=== PATIENT | female | born 1965 | race Caucasian/White ===

== ENCOUNTER 2019-03-28 19:06 | Emergency (ER) | payer BC ==
[~2019-03-28] VITALS: Ht 154.9 cm; Wt 63.5 kg
--- NOTE | 2019-03-28 19:15 | NUR ---
PT [facility] C/O DIZZINESS X 30 MIN AGO. PATIENT STATES SHE FEELS SHAKEY, STATES HAS HX OF ANXIETY. PT AOX4. NAD NOTED. RESP EVEN AND UNLABORED. PT ON MONITOR IN BED 1 WITH FAMILY AT BEDSIDE. WILL CONTINUE TO MONITOR.
--- NOTE | 2019-03-28 19:30 | NUR ---
BLOOD DRAWN AND GIVEN TO LAB
[2019-03-28 19:36] LABS: BASOPHILS # (AUTO) 0.1 /CMM (0.0-0.2); BASOPHILS % (AUTO) 0.9 % (0.0-2.0); EOSINOPHILS % (AUTO) 5.4 % (0.0-6.0); HEMATOCRIT 41 % (33-45); HEMOGLOBIN 13.7 g/dL (11.5-14.8); LYMPHOCYTES # (AUTO) 4.9 /CMM (0.8-4.8); LYMPHOCYTES % (AUTO) 47.2 % (20.0-44.0); MEAN CORPUSCULAR HGB CONC 34 g/dl (31.0-36.0); MEAN CORPUSCULAR VOLUME 89 fL (82-100); MONOCYTES # (AUTO) 0.7 /CMM (0.1-1.30); MONOCYTES % (AUTO) 6.9 % (2.0-12.0); NEUTROPHILS # (AUTO) 4.1 /CMM (1.8-8.9); NEUTROPHILS % (AUTO) 39.6 % (43.0-81.0); PLATELET COUNT (AUTO) 338 /CMM (150-450); RED BLOOD CELL COUNT(AUTO) 4.56 MIL/uL (4.0-5.2); WHITE BLOOD COUNT (AUTO) 10.4 K/uL (4.3-11.0)
[2019-03-28] MEDS: IV NS 0.9% 1,000 ML BAG IV ONE ×2 (19:39→21:34)
[2019-03-28] MEDS ORDERED: LORAZEPAM INJ 2 MG/ML VIAL ONE (19:40)
[2019-03-28] MEDS: LORAZEPAM INJ 2 MG/ML VIAL IV ONE (19:44)
[2019-03-28 19:48] LABS: CALCIUM, SERUM 8.8 mg/dL (8.5-10.1); CARBON DIOXIDE 26 mmol/L (21-32); CHLORIDE 103 mmol/L (98-107); CREATININE 0.7 mg/dL (0.6-1.3); GLUCOSE 126 mg/dL (74-106); POTASSIUM 3.1 mmol/L (3.5-5.1); SODIUM SERUM 140 mmol/L (136-145); UREA NITROGEN, BLOOD 14 mg/dL (7-18)
--- NOTE | 2019-03-28 20:30 | NUR ---
RADIOLOGY AT BEDSIDE FOR XRAY
[2019-03-28] MEDS ORDERED: POTASSIUM CHLORIDE 20 MEQ TAB.PRT.SR PO ONE (20:33)
[2019-03-28] MEDS: POTASSIUM CHLORIDE 20 MEQ TAB.PRT.SR PO ONE (20:47)
[2019-03-28] MEDS: MAGNESIUM OXIDE 400 MG TABLET PO ONE (20:47)
[2019-03-28] MEDS: MAGNESIUM OXIDE 400 MG TABLET ONE (20:48)
--- NOTE | 2019-03-28 20:48 | NUR ---
MAGNESIUM OXIDE 800MG PO TABLET RECEIVED FROM [facility]PART[facility]. UNAVAILVE IN ED OMNICELL.
[2019-03-28 21:01] LABS: APPEARANCE,URINE Clear (CLEAR); BILIRUBIN,URINE Negative (NEGATIVE); BLOOD, URINE Trace-intact Ery/uL (NEGATIVE); COLOR,URINE Yellow (YELLOW); KETONES,URINE Negative (NEGATIVE); LEUKOCYTE ESTERASE ,URINE Small (NEGATIVE); NITRITE, URINE Negative (NEGATIVE); PH,URINE 5.5 (5.0-8.0); PROTEIN,URINE Negative (NEGATIVE); UGLUCOSE Negative (NEGATIVE); UROBILINOGEN,URINE 0.2 EU/dL (0.2)
[2019-03-28 21:12] LABS: BACTERIA,URINE Few /HPF (None Seen); SQUAMOUS EPITHELIAL CELL,UR Few /HPF (None Seen)
[2019-03-28 22:15] VITALS: BP 119/75
[2019-03-28] MEDS ORDERED: CT SWABBABLE VALVE TRANS SET 1 EA INFUS.SET MC ONE (22:15)
[2019-03-28] MEDS ORDERED: IOHEXOL-350 100 ML VIAL IV ONE (22:15)
[2019-03-28] MEDS ORDERED: IV NS 0.9% 250 ML IV ONE (22:15)
--- NOTE | 2019-03-28 22:15 | NUR ---
PT TAKEN TO RADIOLOGY VIA [facility]
--- NOTE | 2019-03-28 22:40 | NUR ---
PT RETURNED FROM CT. TOLERATED WELL.
--- NOTE | 2019-03-28 23:27 | NUR ---
IV removed. Catheter intact and site benign. Pressure and 4x4 applied to site. No bleeding noted.Patient discharged to home in stable condition. Written and verbal after care instructions given. Patient verbalizes understanding of instruction. PT AMBULATORY WITH STEADY GAIT ACCOMPANIED BY FRIEND.
== END 2019-03-28 23:31 | disposition home or self-care (01) ==
LOC: ER 19:09
DX: R00.0 Tachycardia, unspecified (principal); R53.1 Weakness; R42 Dizziness and giddiness; R00.2 Palpitations
CPT/HCPCS: 36415; 71045; 71275; 80048; 81001; 82962; 84484; 85025; 85378; 87086; 93005; 96361; 96374; 99284; J2060; J7030 ×2; J7050; Q9967; 81000-TC